=== PATIENT | male | born 1995 | race Caucasian/White ===

== ENCOUNTER 2018-06-13 21:25 | Emergency (ER) | payer BC ==
[~2018-06-13] VITALS: Ht 167.6 cm; Wt 83.9 kg
[2018-06-13 21:40] VITALS: BP_SYST 164
[2018-06-13] MEDS ORDERED: MORPHINE 2 MG/ML INJ. SYRINGE IM ONE (23:00)
[2018-06-13 23:33] LABS: CALCIUM 8.6 mg/dL (8.4-11.0); CREATININE 1.09 mg/dL (0.55-1.30); POTASSIUM 3.5 mmol/L (3.5-5.1)
[2018-06-13 23:39] LABS: ALBUMIN 3.9 g/dL (3.4-4.8); TOTAL BILIRUBIN 0.3 mg/dL (0.0-1.0)
[2018-06-13 23:40] LABS: BASOPHILS # (AUTO) 0.1 K/uL (0.0-0.2); BASOPHILS % (AUTO) 1.9 % (0.0-2.0); EOSINOPHILS # (AUTO) 0.2 K/uL (0.0-0.4); EOSINOPHILS % (AUTO) 3.8 % (0.0-4.0); HEMATOCRIT 41.6 % (36-54); HEMOGLOBIN 14.1 g/dL (14.0-18.0); LYMPHOCYTES # (AUTO) 2.2 K/uL (1.0-5.5); LYMPHOCYTES % (AUTO) 35.6 % (20.5-51.5); MEAN CORPUSCULAR HEMOGLOBIN 32 pg (27-31); MEAN CORPUSCULAR HGB CONC 34 % (32-36); MEAN CORPUSCULAR VOLUME 95 fL (79.0-98.0); MONOCYTES # (AUTO) 0.4 K/uL (0.0-1.0); MONOCYTES % (AUTO) 6.3 % (1.7-9.3); NEUTROPHILS # (AUTO) 3.2 K/uL (1.8-7.7); NEUTROPHILS % (AUTO) 52.4 % (40.0-70.0); PLATELET COUNT (AUTO) 190 K/uL (130-430); RED CELL DISTRIBUTION WIDTH 12.1 % (9.0-15.0); WHITE BLOOD COUNT (AUTO) 6.1 K/uL (4.8-10.8)
[2018-06-14 00:05] VITALS: BP_SYST 132
== END 2018-06-14 00:05 | disposition home or self-care (01) ==
LOC: SED 21:25
DX: J32.9 Chronic sinusitis, unspecified (principal)
CPT/HCPCS: 36415; 70450; 80053; 85025; 96372; 99284; J2270

== ENCOUNTER 2019-11-17 14:05 | Emergency (ER) | payer BC ==
[~2019-11-17] VITALS: Ht 167.6 cm; Wt 77.1 kg
[2019-11-17 14:13] VITALS: BP_SYST 137
[2019-11-17 16:06] VITALS: BP_SYST 137
== END 2019-11-17 16:06 | disposition home or self-care (01) ==
LOC: SED 14:05
DX: S92.901A Unspecified fracture of right foot, initial encounter for closed fracture (principal); W22.8XXA Striking against or struck by other objects, initial encounter; Y93.89 Activity, other specified; Y92.89 Other specified places as the place of occurrence of the external cause; Y99.8 Other external cause status
CPT/HCPCS: 99283